=== PATIENT | female | born 1965 | race Caucasian/White ===

== ENCOUNTER 2025-01-09 14:13 | Emergency (ER) | payer BC, SELFPAY ==
[2025-01-09 14:15] VITALS: BP 150/98
[2025-01-09 14:40] LABS: % Basophils 0.3 % (0-2); % Eosinophils 3.4 % (0-6); % Immature Granulocytes 1.1 % (0-0.5); % Lymphocytes 22.2 % (20.5-51.1); % Monocytes 9.6 % (1.7-9.3); % Neutrophils 63.4 % (42.2-75.2); Absolute Eosinophils 0.3 10^3/uL (0-0.7); Absolute Immature Granulocytes 0.1 10^3/uL (0-0.05); Absolute Lymphocytes 2.1 10^3/uL (1.2-3.4); Absolute Monocytes 0.9 10^3/uL (0.1-0.6); Hematocrit 40.1 % (37.0-47.0); Hemoglobin 13.9 g/dL (12.0-16.0); Mean Corp Hgb Conc. 34.7 g/dL (33.0-37.0); Mean Corpuscular Hgb 31.1 pg (27.0-31.0); Mean Corpuscular Volume 89.7 fL (81.0-99.0); Mean Platelet Volume 9.4 fL (7.4-10.4); Nucleated Red Blood Cells % 0 %; Platelet Count 251 10^3/uL (130-400); Red Blood Cell Count 4.47 10^6/uL (4.20-5.40); Red Cell Dist. Width 13.1 % (11.5-14.5); White Blood Cell Count 9.4 10^3/uL (4.8-10.8)
[2025-01-09 14:52] LABS: Lactic Acid 1.1 mmol/L (0.7-2.0)
[2025-01-09 14:53] LABS: ALT (SGPT) 24 U/L (0-35); AST (SGOT) 21 U/L (14-36); Albumin 4.4 g/dl (3.5-5.0); Alkaline Phosphatase 87 U/L (38-126); Blood Urea Nitrogen 19 mg/dl (7-17); Calcium 9.4 mg/dl (8.4-10.2); Carbon Dioxide 28 mmol/L (22-30); Chloride 107 mmol/L (98-107); Glucose 110 mg/dl (70-99); Potassium 4.3 mmol/L (3.5-5.1); Sodium 139 mmol/L (135-145); Total Bilirubin 0.4 mg/dl (0.2-1.3); eGFR > 60.00
--- NOTE | 2025-01-09 16:20 | ED.GENMED ---
History of Present Illness
General
Chief Complaint: Breathing Problem
Source: patient
Exam Limitations: none
Time Seen by Provider: 01/09/25 16:12
Nursing documentation reviewed up to this point in time: agreed with
History of Present Illness
History of Present Illness:
Patient is a 59-year-old female who presents to the ER for evaluation. She started with a cold and cough 6 weeks ago however symptoms have not improved. She did have an chest x-ray at urgent care 1 week ago. She was also placed on prednisone Doxy
and inhaler. She completed 5 days of prednisone and still taking doxycycline with inhaler without relief. She does feel shortness of breath at times. She denies any fevers. She did also to start Flonase.
She does not smoke. No prior respiratory issues. No no prior history of DVT PE no oral estrogens.
Past History
Past History
ED Past Medical History: None
ED Past Surgical History: None
Social History
Tobacco: Non-smoker
Personal:
Living: with family
Employment: Employed
Family History
Family History: Other (Noncontributory)
Review of Systems
Review of Systems
Allergies reviewed?: Yes
All Other Systems: ROS reviewed and negative except as documented in HPI and ROS
Constitutional: Reports no symptoms; Denies fever, fatigue or chills
Respiratory: Reports cough and trouble breathing
Cardiac: Reports no symptoms
ABD/GI: Reports no symptoms
Musculoskeletal: Reports no symptoms
Skin: Reports no symptoms
Neurological: Reports no symptoms
Psychiatric: Reports no symptoms
Phy Exam
General Physical Exam
General Presentation: well appearing
General age: appears stated age
General Skin: warm
General Habitus: normal
General Mental: alert
General Hydration: appears well hydrated
Cardiovascular Exam
Cardiovascular Exam: regular rate/rhythm, no murmur and normal peripheral pulses
Pulmonary Exam
Pulmonary Exam: lungs clear and no respiratory distress
Neurological Exam
Neurological Exam: alert and oriented x3
Musculoskeletal Exam
Musculoskeletal Exam: full ROM
Skin Exam
Skin Exam: normal color and warm/dry
Psychiatric Exam
Psychiatric Exam: normal mood/affect
Scores
Heart Failure Risk
Heart Failure Risk Score: Not Applicable
Course
Orders/Labs/Results
Orders:
Orders
01/09/25 14:19
CR Chest - 2 Views Urgent
Comment:
Reason For Exam: cough
01/09/25 14:26
Complete Blood Count/With Diff Urgent
Comprehensive Metabolic Panel Urgent
Lactic Acid Urgent
01/09/25 16:31
Albuterol Sulfate [Ventolin Nebules] 7.5 mg INH R NOW STA
Ipratropium Nebs [Atrovent Nebules] 1 mg INH R NOW STA
01/09/25 16:32
Dexamethasone Pf [Decadron] 10 mg PO NOW STA
01/09/25 19:15
EKG [Electrocardiogram (*1)] Urgent
Reason for Study: Shortness of Breath
EKG- Treatment ONCE
Abnormal Lab Results
01/09/25
14:26
MCH 31.1 H pg
(27.0-31.0)
Abs Immat Gran (auto) 0.1 H 10^3/uL
(0-0.05)
Absolute Monos (auto) 0.9 H 10^3/uL
(0.1-0.6)
Immature Gran % 1.1 H %
(0-0.5)
Monocytes % 9.6 H %
(1.7-9.3)
BUN 19 H mg/dl
(7-17)
Glucose 110 H mg/dl
(70-99)
01/09/25 14:26
01/09/25 14:26
Vital Signs
Initial and Last Documented VS:
Initial Vital Signs
Temp Pulse Resp BP Pulse Ox
98.2 F 89 20 150/98 98
01/09/25 14:15 01/09/25 14:15 01/09/25 14:15 01/09/25 14:15 01/09/25 14:15
Last Documented Vital Signs
Temp Pulse Resp BP Pulse Ox
98.2 F 80 20 150/98 99
01/09/25 14:15 01/09/25 18:04 01/09/25 14:15 01/09/25 14:15 01/09/25 18:07
MDM/Problems Addressed
Differential Diagnosis Includes:
Not limited to bronchitis, reactive airway disease, pneumonia less likely
MDM/Problems Addressed:
Symptoms are consistent w/ bronchitis. Patient has cough and wheezing for the past 6 weeks. She did complete a steroid and is on doxycycline and Flonase. She is on exam she has scattered wheezing and audible cough. She is afebrile with a normal
white count. Patient was given an hour-long neb and oral steroid on exam she sounds much better still with mild cough however wheezing has improved. She was ambulatory nonhypoxic feels well enough to go home. As documented she is well-appearing
afebrile not hypoxic no acute distress with a normal white count no acute findings on chest x-ray. No risks for PE. Symptoms of wheezing and cough have been for the past 6 weeks. Will DC with albuterol nebulizer and additional steroids she may
continue to take doxycycline and follow-up with family doctor as well as pulmonology.
*Radiology
Radiology exam reviewed: radiology read reviewed
*Pulse Oximetry
Patient hypoxic: no
*Critical Care Note
Total Time (30-74mins, 75-104mins- exclusive of procedures): Not Applicable
ED Attending Note
-
Portions of this chart may have been created with voice recognition software.� Occasional wrong word or��sound alike� substitutions may have occurred due to the inherent limitations of voice recognition software.
Discharge Plan
Departure
Patient Disposition: Home (Routine Discharge)
Date of Disposition: 01/09/25
Time of Disposition: 19:21
Patient with high blood pressure during this ER visit?: Yes
Condition: Fair
Covid-19: Not Applicable
Discharge Problem:
Acute bronchitis
Instructions: Acute Bronchitis, Adult (DC)
Prescriptions:
New
prednisone 50 mg tablet
50 mg PO DAILY Qty: 5 0RF
albuterol sulfate 2.5 mg /3 mL (0.083 %) solution for nebulization
2.5 mg inhalation QID PRN (Reason: shortness of breath or wheezing) Qty: 75 0RF
No Action
gentamicin [Gentak] 1 APPLIC ointment
1 applic OPHTHALMIC TID Qty: 1 0RF
Rx Instructions:
right eye
hydrocodone-acetaminophen 1 TABLET tablet
1 tab PO QIDPRN PRN (Reason: pain) Qty: 12 0RF
Referrals:
Lorraine Parada MD [Active, Pulmonary Medicine]
NONE,* [Family Provider, Internal Medicine]
Activity Restrictions/Additional Instructions:
As discussed you were given a nebulizer to go home with you may use every 6 hours as needed. In addition start steroids daily for the next 5 days tomorrow. You are given the first dose here in the ER. Please follow-up closely with your family
doctor for reevaluation and pulmonology as needed. You may either try [id number] Claritin or Mucinex. You may continue Flonase. Return if any worsening of symptoms including shortness of breath or fevers.
Interventions
Interventions:
*Risk Screen - Suicide Last Done: 01/09/25 17:01
*General Assessment Last Done: 01/09/25 14:15
*Neglect/Abuse Screening Last Done: 01/09/25 18:04
*ED- Fall Risk Assessment Last Done: 01/09/25 17:00
*ED COVID-19 Vaccine History Last Done: 01/09/25 17:00
*Nursing Disposition Last Done: 01/09/25 20:21
ED- Cardiac Assessment Last Done: 01/09/25 18:07
ED- Pulmonary Assessment Last Done: 01/09/25 18:07
Discharge Date and Time
Discharge Date/Time: 01/09/25 20:21
Print Language: FRENCH
[2025-01-09] MEDS: DECADRON 10 MG PO (16:50)
[2025-01-09] MEDS: ATROVENT NEBULES 1 MG INH (16:52)
[2025-01-09] MEDS: VENTOLIN NEBULES 7.5 MG INH (16:52)
[2025-01-09 17:00] VITALS: BMI 28.3
--- NOTE | 2025-01-09 19:25 | EDRN ---
Report received, introduced myself, walking 02 sats stayed 96-99%, sharon Davis aware, patient to be discharged home.
== END 2025-01-09 20:21 | disposition home or self-care (01) ==
LOC: EMR 14:13
PROVIDERS: Emergency Medicine; EMERGENCY PHYSICIAN Student in an Organized Health Care Education/Training Program
DX: J20.9 Acute bronchitis, unspecified (principal); R03.0 Elevated blood-pressure reading, without diagnosis of hypertension
CPT/HCPCS: 99283; 94640; 94644; 71046; 80053; 83605; 85025; 93005